=== PATIENT | male | born 1960 | race African-American/Black ===

== ENCOUNTER 2016-05-17 13:12 | Emergency (ER) | payer OTHER, SELFPAY ==
--- NOTE | 2016-05-17 14:07 | ERRECORD ---
[facility] EMERGENCY RECORD HPI FLU-LIKE SYNDROME (13:32 BPIC) CHIEF COMPLAINT: Patient presents for evaluation of body aches, Patient presents for evaluation of fatigue, Patient presents for evaluation of fever, Patient presents for evaluation of upper respiratory infection. HISTORIAN: History provided by patient. LOCATION: Symptoms are generalized. SEVERITY: Maximum severity of symptoms moderate, Currently symptoms are moderate. TIME COURSE: Gradual onset of symptoms, There has been no change in the patient's symptoms over time, are constant. ASSOCIATED WITH: Associated with cough, Associated with headache. EXACERBATED BY: Patient's condition exacerbated by nothing. RELIEVED BY: Patient's condition relieved by nothing, Patient's condition relieved by over the counter medications, Some relief of symptoms transiently. ROS (13:32 BPIC) CONSTITUTIONAL: Negative constitutional review of systems, Historian reports chills, reports fatigue, reports fever, reports malaise. EYES: Negative eye review of systems, Historian denies eye pain, denies eye redness, denies eye discharge. ENT: Negative ears, nose, throat review of systems, Historian denies dysphasia, denies dysphonia, reports rhinorrhea, reports sore throat. CARDIOVASCULAR: Negative cardiovascular review of systems, Historian denies dyspnea on exertion. RESPIRATORY: Negative respiratory review of systems, Historian reports cough, denies shortness of breath, denies sputum. GI: Negative gastrointestinal review of systems, Historian denies abdominal pain, reports anorexia. Pt reports mild nausea. GENITOURINARY MALE: Negative genitourinary review of systems. MUSCULOSKELETAL: Negative musculoskeletal review of systems, Historian reports arthralgias, reports myalgias. SKIN: Negative skin review of systems. NEUROLOGIC: Negative neurologic review of systems, Historian denies focal weakness, denies gait changes, reports headache, denies irritability, denies lethargy. ENDOCRINE: Negative endocrine review of systems. HEMO/LYMPHATIC: Normal hematologic/lymphatic system review. ALLERGIC/IMMUNOLOGIC: Normal allergy/immunologic system review. PSYCHIATRIC: Negative psychiatric review of systems. NOTES: All other ROS negative except as noted in HPI. PAST MEDICAL HISTORY MEDICAL HISTORY: Flu vaccine not up to date, Tetanus not up to date, Pneumococcal vaccine not up to date, Past medical history includes history of hypertension, which has not been treated, Patient &a-1R&a+25V*p+0X*c6176W*c202B*c15G*c2P*p-0X&a-25V&a+1R Name: Carter Royal : 1960 M55 MedRec: [id number] AcctNum: [id number] Prepared: SunMay 17, 2016 21:21 by Interface Page 1 of 3 pMD [facility] EMERGENCY RECORD is noncompliant, Past medical history includes neurological disease, Epilepsy. (SunMay 17, 2016 13:21 MDEB) MALE SURGICAL HISTORY: rt knee. (SunMay 17, 2016 13:21 MDEB) SOCIAL HISTORY: Patient denies alcohol use, Patient currently uses drugs, abuses cocaine, abuses marijuana, Social drug use, Last used: 3 days ago, Patient currently uses tobacco, smokes cigarettes, daily, Patient smokes 1 pack per day. (SunMay 17, 2016 13:21 MDEB) NOTES: I have reviewed the nurses notes including PMH, PSxH, PSocH and agree with all. (13:32 BPIC) KNOWN ALLERGIES No Known Drug Allergies CURRENT MEDICATIONS No recorded medications VITAL SIGNS (13:18 MDEB) VITAL SIGNS: BP: 142/97, Pulse: 71, Resp: 20, Temp: 98.3 (Tympanic), Pain: 7, O2 sat: 98 on Room Air, Time: 05/17/2016 13:18. PHYSICAL EXAM (13:32 BPIC) CONSTITUTIONAL: Vital signs reviewed, Patient appears non toxic, Patient alert and oriented to person, place and time. HEAD: Head exam included findings of head atraumatic, normocephalic. EYES: Eye exam included findings of eyelids normal to inspection, Pupils equally round and reactive to light, Extraocular muscles intact. ENT: Nose exam included findings of, There is some clear rhinorrhea. Nasal exam is otherwise normal., Pharynx, Mild erythema is present., Uvula exam normal, Tonsil exam normal, Mouth exam normal. NECK: Neck exam included findings of normal range of motion, Trachea midline. RESPIRATORY CHEST: Respiratory exam included findings of no respiratory distress, Breath sounds clear, No rhonchi, Chest exam included findings of chest movement symmetrical, Chest expansion equal. CARDIOVASCULAR: Cardiovascular exam included findings of heart rate regular rate and rhythm, Heart sounds normal. ABDOMEN MALE: Abdominal exam included findings of abdomen nontender, Bowel sounds normal. BACK: Back exam normal. UPPER EXTREMITY: Upper extremity exam included findings of inspection normal, Range of motion normal. LOWER EXTREMITY: Lower extremity exam included findings of inspection normal, Range of motion normal. NEURO: Neuro exam findings include patient oriented to person, &a-1R&a+25V*p+0X*q1134X*c202B*c15G*c2P*p-0X&a-25V&a+1R Name: Carter Royal : 1960 M55 MedRec: [id number] AcctNum: [id number] Prepared: SunMay 17, 2016 21:21 by Interface Page 2 of 3 pMD [facility] EMERGENCY RECORD place and time, Speech normal, Gait normal. SKIN: Skin exam included findings of skin warm, dry, and normal in color. LYMPHATIC: Few shoddy nodes present in submandibular region. PSYCHIATRIC: Psychiatric exam included findings of patient oriented to person place and time, Normal affect. DOCTOR NOTES (13:32 BPIC) TEXT: Signs and symptoms consistent with upper repiratory infection. Although this may be viral in origin, I am concerned that there may be a developing bacterial infection. Rx for antibiotics and close follow up with pcp recommended. Advised pt to return to the ED if she is worsening. PATIENT PLAN: The patient will be discharged, The patient will follow up with primary care physician. PROBLEM LIST No recorded problems DIAGNOSIS (13:32 BPIC) FINAL: PRIMARY: upper respiratory infection. PRESCRIPTION (13:32 BPIC) albuterol sulfate inhalation: HFA AEROSOL WITH ADAPTER (GRAM) : 90 mcg : INHALATION : Quantity: 1-2 Unit: inhalation Route: INHALATION Schedule: every 6 hours PRN Dispense: 1 May substitute. Refills: No Refills . NOTES: No Refills. Kinza-D 24 Hour: TABLET, EXTENDED RELEASE 24 HR : 180 mg-240 mg : ORAL : Quantity: * Unit: Route: ORAL Schedule: Dispense: * May substitute. Refills: No Refills . NOTES: ^s=No Refills No Refills. Keflex: CAPSULE : 500 mg : ORAL : Quantity: 500 Unit: mg Route: ORAL Schedule: 2 times a day Dispense: 20 May substitute. Refills: No Refills . NOTES: ^s=^s=No Refills No Refills No Refills. DISPOSITION PATIENT: Disposition Type: Discharge, Disposition: *Discharge Home, Condition: Good. (13:32 BPIC) Patient left the department. (13:42 JEAN MARIE) Dominique: BPIC=MD Joss, James CONTRERASEB=ANNMARIE Cruz, Mahogany &a-1R&a+25V*p+0X*h3096B*c202B*c15G*c2P*p-0X&a-25V&a+1R Name: Carter Royal : 1960 M55 MedRec: [id number] AcctNum: [id number] Prepared: SunMay 17, 2016 21:21 by Interface Page 3 of 3 pMD MTDD
--- NOTE | 2016-05-17 14:10 | PICIS ---
[facility] EMERGENCY RECORD TRIAGE (SunMay 17, 2016 13:21 MDEB) PATIENT: NAME: Carter Royal, AGE: 55, GENDER: male, : Sat 1960, TIME OF GREET: SunMay 17, 2016 13:13, PREFERRED LANGUAGE: Northern Irish, RACE: Black or , ETHNICITY: Not or , FALL RISK: NO, ECODE BILLING MAP: [facility] ER, SSN: [id number], Zip Code: [address], KG WEIGHT: 95.25, PHONE: , , , PERSON ID: [id number], PCP: [facility] Imelda MARIUM. (SunMay 17, 2016 13:21 MDEB) TRIAGE NOTES: PRODUCTIVE COUGH WITH YELLOW SPUTUM, CONGESTED FOR 1 1/2 WKS. (SunMay 17, 2016 13:21 MDEB) COMPLAINT: FLU LIKE SYM. (SunMay 17, 2016 13:21 MDEB) ADMISSION: URGENCY: 4 Non Urgent, ADMISSION SOURCE: Home, TRANSPORT: Walk-in, BED: TRIAGE. (SunMay 17, 2016 13:21 MDEB) PAIN: Patient complains of pain described as, aching, on a scale 0-10 patient rates pain as 8, Location GENERALIZED BODY ACHES. (SunMay 17, 2016 13:21 MDEB) IMMUNIZATIONS: Tetanus not up to date. (SunMay 17, 2016 13:21 MDEB) TRIAGE SCREENING: Patient denies suicidal ideation, Patient denies presence of domestic violence. (SunMay 17, 2016 13:21 MDEB) PROVIDERS: TRIAGE NURSE: Mahogany Cruz RN. (SunMay 17, 2016 13:21 MDEB) VITAL SIGNS: BP 142/97, Pulse 71, Resp 20, Temp 98.3, (Tympanic), Pain 7, O2 Sat 98, on Room Air, Time 05/17/2016 13:18. (13:18 MDEB) PREVIOUS VISIT ALLERGIES: No Known Drug Allergies. (SunMay 17, 2016 13:21 MDEB) KNOWN ALLERGIES No Known Drug Allergies CURRENT MEDICATIONS No recorded medications VITAL SIGNS (13:18 MDEB) VITAL SIGNS: BP: 142/97, Pulse: 71, Resp: 20, Temp: 98.3 (Tympanic), Pain: 7, O2 sat: 98 on Room Air, Time: 05/17/2016 13:18. NURSING ASSESSMENT: RESPIRATORY /CHEST (13:24 MDEB) CONSTITUTIONAL: Patient arrives ambulatory, Gait steady, History obtained from patient, Patient appears, anxious, uncomfortable, Patient cooperative, Patient alert, Oriented to person, place and time, Skin warm, Skin dry, Skin normal in color, Mucous membranes pink, Mucous membranes moist, Patient is well-groomed, Patient complains of COUGH, CONGESTION FOR 10 DAYS, GENERALIZED BODY ACHES THAT ARE MORE SEVERE WHEN HE COUGHS. PAIN: aching pain, generalized, on a scale 0-10 patient rates pain as 7, Pain exacerbated by nothing, Nothing has been tried to alleviate the pain. &a-1R&a+25V*p+0X*w4381X*c202B*c15G*c2P*p-0X&a-25V&a+1R Name: Carter Royal : 1960 M55 MedRec: [id number] AcctNum: [id number] Prepared: SunMay 17, 2016 21:27 by Interface Page 1 of 5 pMD [facility] EMERGENCY RECORD RESPIRATORY/CHEST: Breath sounds clear, Respiratory assessment findings include respiratory effort easy, Respirations regular, Conversing normally, Neck and chest exam findings include trachea midline, Chest expansion equal, Chest movement symmetrical, Associated with cough, productive of, yellow sputum. ENT: Ear assessment findings include ear normal to inspection, Congestion, bilaterally, Mouth and throat assessment findings include mouth inspection normal, Mucous membranes pink, and moist, Able to swallow, Speech normal. NOTES: Emotional support needed and given, Patient tolerated procedure well. SAFETY: Side rails up, Cart/Stretcher in lowest position, Family at bedside, Call light within reach, Hospital ID band on. NURSING PROCEDURE: DISCHARGE NOTE (13:38 MDEB) DISCHARGE: Patient discharged to home, ambulating without assistance, driving self, unaccompanied, Summary of Care printed/ provided, Patient requested and was provided an electronic copy of Discharge Instructions, Transition record given to patient, Discharge instructions given to patient, Simple or moderate discharge teaching performed, CHECK BP GET RX FILLED WITH NEW MD APPT, Prescriptions given and instructions on side effects given, Above person(s) verbalized understanding of discharge instructions and follow-up care. BELONGINGS: Belongings remain with patient, Valuables remain with patient. NOTES: Emotional support needed and given, Patient tolerated procedure well. HPI FLU-LIKE SYNDROME (13:32 BPIC) CHIEF COMPLAINT: Patient presents for evaluation of body aches, Patient presents for evaluation of fatigue, Patient presents for evaluation of fever, Patient presents for evaluation of upper respiratory infection. HISTORIAN: History provided by patient. LOCATION: Symptoms are generalized. SEVERITY: Maximum severity of symptoms moderate, Currently symptoms are moderate. TIME COURSE: Gradual onset of symptoms, There has been no change in the patient's symptoms over time, are constant. ASSOCIATED WITH: Associated with cough, Associated with headache. EXACERBATED BY: Patient's condition exacerbated by nothing. RELIEVED BY: Patient's condition relieved by nothing, Patient's condition relieved by over the counter medications, Some relief of symptoms transiently. ROS (13:32 BPIC) CONSTITUTIONAL: Negative constitutional review of systems, Historian reports chills, reports fatigue, &a-1R&a+25V*p+0X*o7175P*c202B*c15G*c2P*p-0X&a-25V&a+1R Name: Carter Royal : 1960 M55 MedRec: [id number] AcctNum: [id number] Prepared: SunMay 17, 2016 21:27 by Interface Page 2 of 5 pMD [facility] EMERGENCY RECORD reports fever, reports malaise. EYES: Negative eye review of systems, Historian denies eye pain, denies eye redness, denies eye discharge. ENT: Negative ears, nose, throat review of systems, Historian denies dysphasia, denies dysphonia, reports rhinorrhea, reports sore throat. CARDIOVASCULAR: Negative cardiovascular review of systems, Historian denies dyspnea on exertion. RESPIRATORY: Negative respiratory review of systems, Historian reports cough, denies shortness of breath, denies sputum. GI: Negative gastrointestinal review of systems, Historian denies abdominal pain, reports anorexia. Pt reports mild nausea. GENITOURINARY MALE: Negative genitourinary review of systems. MUSCULOSKELETAL: Negative musculoskeletal review of systems, Historian reports arthralgias, reports myalgias. SKIN: Negative skin review of systems. NEUROLOGIC: Negative neurologic review of systems, Historian denies focal weakness, denies gait changes, reports headache, denies irritability, denies lethargy. ENDOCRINE: Negative endocrine review of systems. HEMO/LYMPHATIC: Normal hematologic/lymphatic system review. ALLERGIC/IMMUNOLOGIC: Normal allergy/immunologic system review. PSYCHIATRIC: Negative psychiatric review of systems. NOTES: All other ROS negative except as noted in HPI. PAST MEDICAL HISTORY MEDICAL HISTORY: Flu vaccine not up to date, Tetanus not up to date, Pneumococcal vaccine not up to date, Past medical history includes history of hypertension, which has not been treated, Patient is noncompliant, Past medical history includes neurological disease, Epilepsy. (SunMay 17, 2016 13:21 MDEB) MALE SURGICAL HISTORY: rt knee. (SunMay 17, 2016 13:21 MDEB) SOCIAL HISTORY: Patient denies alcohol use, Patient currently uses drugs, abuses cocaine, abuses marijuana, Social drug use, Last used: 3 days ago, Patient currently uses tobacco, smokes cigarettes, daily, Patient smokes 1 pack per day. (SunMay 17, 2016 13:21 MDEB) NOTES: I have reviewed the nurses notes including PMH, PSxH, PSocH and agree with all. (13:32 BPIC) PHYSICAL EXAM (13:32 BPIC) CONSTITUTIONAL: Vital signs reviewed, Patient appears non toxic, Patient alert and oriented to person, place and time. HEAD: Head exam included findings of head atraumatic, normocephalic. EYES: Eye exam included findings of eyelids normal to inspection, Pupils equally round and reactive to light, Extraocular muscles intact. &a-1R&a+25V*p+0X*u6647I*c202B*c15G*c2P*p-0X&a-25V&a+1R Name: Carter Royal : 1960 M55 MedRec: [id number] AcctNum: [id number] Prepared: SunMay 17, 2016 21:27 by Interface Page 3 of 5 pMD [facility] EMERGENCY RECORD ENT: Nose exam included findings of, There is some clear rhinorrhea. Nasal exam is otherwise normal., Pharynx, Mild erythema is present., Uvula exam normal, Tonsil exam normal, Mouth exam normal. NECK: Neck exam included findings of normal range of motion, Trachea midline. RESPIRATORY CHEST: Respiratory exam included findings of no respiratory distress, Breath sounds clear, No rhonchi, Chest exam included findings of chest movement symmetrical, Chest expansion equal. CARDIOVASCULAR: Cardiovascular exam included findings of heart rate regular rate and rhythm, Heart sounds normal. ABDOMEN MALE: Abdominal exam included findings of abdomen nontender, Bowel sounds normal. BACK: Back exam normal. UPPER EXTREMITY: Upper extremity exam included findings of inspection normal, Range of motion normal. LOWER EXTREMITY: Lower extremity exam included findings of inspection normal, Range of motion normal. NEURO: Neuro exam findings include patient oriented to person, place and time, Speech normal, Gait normal. SKIN: Skin exam included findings of skin warm, dry, and normal in color. LYMPHATIC: Few shoddy nodes present in submandibular region. PSYCHIATRIC: Psychiatric exam included findings of patient oriented to person place and time, Normal affect. EVENTS TRANSFER: Triage to Emergency Triage. (13:21 MDEB) Emergency Triage to Main ED -04. (13:22 MDEB) Removed from Emergency Main ED -04. (13:42 MDEB) DOCTOR NOTES (13:32 BPIC) TEXT: Signs and symptoms consistent with upper repiratory infection. Although this may be viral in origin, I am concerned that there may be a developing bacterial infection. Rx for antibiotics and close follow up with pcp recommended. Advised pt to return to the ED if she is worsening. PATIENT PLAN: The patient will be discharged, The patient will follow up with primary care physician. PROBLEM LIST No recorded problems DIAGNOSIS (13:32 BPIC) FINAL: PRIMARY: upper respiratory infection. DISPOSITION PATIENT: Disposition Type: Discharge, Disposition: *Discharge &a-1R&a+25V*p+0X*b4306H*c202B*c15G*c2P*p-0X&a-25V&a+1R Name: Carter Royal : 1960 M55 MedRec: [id number] AcctNum: [id number] Prepared: SunMay 17, 2016 21:27 by Interface Page 4 of 5 pMD [facility] EMERGENCY RECORD Home, Condition: Good. (13:32 BPIC) Patient left the department. (13:42 MDEB) INSTRUCTION (13:34 BPIC) DISCHARGE: UPPER RESP INFECTION ANTIBIOTIC TREATMENT ADULT. SPECIAL: Thank you for choosing [facility] for your care today! Please follow up with your doctor in the next 2-3 days. Return to the emergency department with any emergent or worsening concerns. God Bless you!. PRESCRIPTION (13:32 BP) albuterol sulfate inhalation: HFA AEROSOL WITH ADAPTER (GRAM) : 90 mcg : INHALATION : Quantity: 1-2 Unit: inhalation Route: INHALATION Schedule: every 6 hours PRN Dispense: 1 May substitute. Refills: No Refills . NOTES: No Refills. Kinza-D 24 Hour: TABLET, EXTENDED RELEASE 24 HR : 180 mg-240 mg : ORAL : Quantity: * Unit: Route: ORAL Schedule: Dispense: * May substitute. Refills: No Refills . NOTES: ^s=No Refills No Refills. Keflex: CAPSULE : 500 mg : ORAL : Quantity: 500 Unit: mg Route: ORAL Schedule: 2 times a day Dispense: 20 May substitute. Refills: No Refills . NOTES: ^s=^s=No Refills No Refills No Refills. IMAGING *DISCHARGE INSTRUCTIONS RECEIPT: Image captured from scanner. (13:41 MDALEXIS) *SUPPLY CHARGE SHEET: Image captured from scanner. (13:42 MDEB) ADMIN (21:15 [facility]) DIGITAL SIGNATURE: MD Coreas Bryan. Dominique: [facility]=MD Coreas Bryan MDEB=ANNMARIE Cruz, Mahogany &a-1R&a+25V*p+0X*t6899B*c202B*c15G*c2P*p-0X&a-25V&a+1R Name: Carter Royal : 1960 M55 MedRec: [id number] AcctNum: [id number] Prepared: SunMay 17, 2016 21:27 by Interface Page 5 of 5 pMD MTDD
== END 2016-05-17 13:38 | disposition home or self-care (01) ==
LOC: MADERS 13:12
DX: J06.9 Acute upper respiratory infection, unspecified (principal); I10 Essential (primary) hypertension; F17.210 Nicotine dependence, cigarettes, uncomplicated
CPT/HCPCS: 99283

== ENCOUNTER 2017-01-18 17:34 | Emergency (ER) | payer SELFPAY ==
[2017-01-18] MEDS ORDERED: AMOXicillin 250 MG CAP ONE (18:10)
[2017-01-18] MEDS ORDERED: Lorazepam 1 MG TAB ONE (18:10)
[2017-01-18] MEDS ORDERED: Benzonatate 100 MG CAP ONE (18:10)
== END 2017-01-18 18:20 | disposition home or self-care (01) ==
LOC: MADERS 17:34
DX: J20.9 Acute bronchitis, unspecified (principal); B86 Scabies; G40.909 Epilepsy, unspecified, not intractable, without status epilepticus; I10 Essential (primary) hypertension; F17.210 Nicotine dependence, cigarettes, uncomplicated
CPT/HCPCS: 99283

== ENCOUNTER 2022-02-14 02:59 | Emergency (ER) | payer SELFPAY | END 2022-02-14 04:23 | disposition home or self-care (01) | LOC: MADERS 02:59 | DX: S92.522A Displaced fracture of middle phalanx of left lesser toe(s), initial encounter for closed fracture (principal); J45.909 Unspecified asthma, uncomplicated; I10 Essential (primary) hypertension; G40.909 Epilepsy, unspecified, not intractable, without status epilepticus; F17.210 Nicotine dependence, cigarettes, uncomplicated; W22.03XA Walked into furniture, initial encounter ==

== ENCOUNTER 2023-01-12 22:28 | Emergency (ER) | payer SELFPAY ==
[2023-01-12] MEDS ORDERED: Ketorolac Tromethamine 30 MG/ML VIAL ONE (23:16)
[2023-01-12] MEDS ORDERED: Sodium Chloride 0.9% 1,000 ML ONE (23:16)
[2023-01-12] MEDS ORDERED: Lorazepam 2 MG/ML VIAL ONE (23:17)
[2023-01-12 23:19] LABS: #Basophils 0.1 thou/uL (0.0-0.2); #Lymphocytes 1.4 thou/uL (1.20-3.40); #Monocytes 0.8 thou/uL (0.11-0.59); #Neutrophils 4.5 thou/uL (1.40-6.50); %Basophils 1.8 % (0.0-1.0); %Eosinophils 0.3 % (0.0-10.0); %Lymphocytes 20.6 % (21.0-51.0); %Monocytes 11.6 % (0.0-10.0); %Neutrophils 65.7 % (42.0-75.0); Hematocrit 43.4 % (42.0-52.0); Hemoglobin 14.4 g/dL (14.0-18.0); Mean Corpuscular HGB CONC 33.1 g/dL (32.0-36.0); Mean Corpuscular Hemoglobin 29.4 pg (27.0-31.0); Mean Corpuscular Volume 88.8 fl (78.0-98.0); Mean Platelet Volume 9.4 fL (7.4-10.4); Platelet Count 177 10x3/uL (130-400); Red Blood Cell (RBC) Count 4.89 mill/uL (4.70-6.10); White Blood Cell (WBC) Count 6.8 10x3/uL (4.8-10.8)
[2023-01-12 23:38] LABS: Anion Gap 20 mmol/L (10-20); BUN (Urea Nitrogen) 18 mg/dL (8.4-25.7); Calc. Creatinine Clearance 0 mL/min (70-130); Calcium 9.9 mg/dL (7.8-10.44); Carbon Dioxide 18 mmol/L (22-29); Chloride 106 mmol/L (98-107); Estimated GFR 37; Glucose 107 mg/dL (70-105); Potassium 4.4 mmol/L (3.5-5.1); Sodium 140 mmol/L (136-145)
[2023-01-13] MEDS ORDERED: Sodium Chloride 0.9% 1,000 ML ONE ×2 (00:12→01:02)
[2023-01-13 01:35] LABS: Bilirubin Negative (Negative); Blood, Urine Moderate (Negative); Clarity Clear (Clear); Glucose, Urine (Dipstick) Negative (Negative); Ketone, Urine Negative (Negative); Leukocyte Negative (Negative); Nitrite Negative (Negative); Protein, Urine (Dipstick) 30 mg/dL (Neg-Trace); Specific Gravity, Urine 1.015 (1.005-1.030); pH, Urine 6.5 (5.0-9.0)
[2023-01-13 01:37] LABS: Bacteria/HPF Rare-Few HPF (None Seen); CAUTI Indications for Culture Alt mental st,lethar; Mucous/LPF 2+ LPF (<2+); Sperm/HPF Rare HPF (None Seen); Urine Culture Reflex No No; WBC/HPF 0-3 HPF (0-3)
[2023-01-13 01:44] LABS: Amphetamine Detected (NotDetected); Barbiturates Screen Not Detected (NotDetected); Benzodiazepine Screen Not Detected (NotDetected); Cocaine Metabolite Screen Detected (NotDetected); Methadone Not Detected (NotDetected); Methamphetamine Detected (NotDetected); Opiate Screen Not Detected (NotDetected); Oxycodone Screen Not Detected (NotDetected); Phencyclidine (PCP) Not Detected (NotDetected); THC/Cannabinoid Screen Detected (NotDetected); Tricyclic Screen Not Detected (NotDetected)
== END 2023-01-13 03:41 | disposition short-term general hospital (02) ==
LOC: MADERS 22:28
DX: N17.9 Acute kidney failure, unspecified (principal); F14.10 Cocaine abuse, uncomplicated; F15.10 Other stimulant abuse, uncomplicated; M79.672 Pain in left foot; I10 Essential (primary) hypertension; F17.210 Nicotine dependence, cigarettes, uncomplicated
CPT/HCPCS: 70450; 80048; 80306; 81001; 84443; 85025; 93005; 96361; 96374; 96375; J1885; J2060; J7050